=== PATIENT | male | born 1960 | race Caucasian/White ===

== ENCOUNTER 2017-05-21 08:43 | Observation (INO) | payer MEDICAID ==
[~2017-05-21] VITALS: Ht 177.8 cm; Wt 70.3 kg
[~2017-05-21 08:43] MED LIST: ACCUNEB SO1.25 MG/1 INH; ATROVENT HFA14 GM INH; DOXYCYCLINE 10100 MG PO; NOHOMEMEDICATIONS; NORCO 5-325 TA1 EACH PO; PREDNISONE 10 M10 MG PO; PROAIR HFA8.5 GM PO; SINGULAIR 10 MG10 M1 PO; VENTOLIN HFA 1818 GM INH; ZYVOX600 MG PO
[2017-05-21 08:46] VITALS: BP 246/168
[2017-05-21 09:18] LABS: ABSOLUTE BASOPHILS 0.1 thou/uL (0.0-0.2); ABSOLUTE EOSINOPHILS 0.6 thou/uL (0.0-0.7); ABSOLUTE LYMPHOCYTES 1.4 thou/uL (0.8-5.3); ABSOLUTE MONOCYTES 0.6 thou/uL (0.0-1.2); ABSOLUTE NEUTROPHILS 6.6 thou/uL (1.6-8.1); BASOPHILS 0.8 %; EOSINOPHILS 6.3 %; HEMATOCRIT 46.4 % (42.0-52.0); HEMOGLOBIN 16.1 gm/dL (14.0-18.0); LYMPHOCYTES 14.9 %; MCHC 34.8 g/dL (28.0-37.0); MCV 94.6 fL (80.0-100.0); MONOCYTES 6.4 %; MPV 7.8 fl. (7.2-11.1); NUCLEATED RBCS 0 /100WBC; PLATELET COUNT* 134 thou/uL (150-400); POLYS 71.6 %; RDW-CV 13.1 % (10.5-14.5); WBC 9.2 thou/uL (4.0-11.0)
[2017-05-21 09:32] LABS: ANION GAP 5 mmol/L (7-16); BUN 14 mg/dL (7-18); CALCIUM 8.2 mg/dL (8.5-10.1); CHLORIDE 103 mmol/L (98-107); CO2 32 mmol/L (21-32); GLUCOSE 111 mg/dL (70-99); INR 1.1; POTASSIUM 4.1 mmol/L (3.5-5.1); PROTIME 10.3 Seconds (9.20-11.50); SODIUM 140 mmol/L (136-145)
[2017-05-21 09:42] LABS: ALBUMIN 3.7 g/dL (3.4-5.0); ALKALINE PHOSPHATASE 90 U/L (46-116); LIPASE 190 U/L (73-393); NT-PRO BRAIN NAT PEPTIDE 75 pg/mL (<300); SGOT 16 U/L (15-37); SGPT 19 U/L (30-65); TOTAL BILIRUBIN 0.3 mg/dL (<0.1-1.0); TOTAL PROTEIN 6.8 g/dL (6.4-8.2); TROPONIN-I LEVEL <0.06 ng/mL (<0.06)
[2017-05-21] MEDS ORDERED: ZOFRAN4 MG PO (09:50)
[2017-05-21 12:03] LABS: URINE BILIRUBIN NEGATIVE (Negative); URINE BLOOD NEGATIVE (Negative); URINE CLARITY CLEAR; URINE COLOR YELLOW; URINE GLUCOSE-RANDOM NEGATIVE (Negative); URINE KETONES NEGATIVE (Negative); URINE LEUKOCYTES-REFLEX NEGATIVE (Negative); URINE NITRITE-REFLEX NEGATIVE (Negative); URINE PROTEIN NEGATIVE (Negative); URINE SPECIFIC GRAVITY 1.025 (1.005-1.030); URINE UROBILINOGEN 0.2 E.U./dl (0.2-1.0)
[2017-05-21 16:08] VITALS: BP 98/61
[2017-05-21 16:30] VITALS: BP 104/68
--- NOTE | 2017-05-21 16:33 | EKG ---
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1960 Requested By: Baldo Marion Order Number: [id number] MD: Kj Gil Measurements Intervals [place] Rate: 85 P: 53 LA: 137 QRS: 72 QRSD: 92 T: 38 QT: 404 QTc: 481 Interpretive Statements Sinus rhythm Borderline prolonged QT interval Compared to ECG 01/23/2016 22:08:32 No significant changes Electronically Signed On 05-21-2017 16:33:23 COMPRESSION MOLDING MACHINE SETTER by Kj Gil [email or web address] <ELECTRONICALLY SIGNED> By: Kj Gil MD, [facility] 05/21/17 1633 [id number] [id number] Kj Gil MD, [facility] /EPI
--- NOTE | 2017-05-21 16:58 | EKG ---
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 05/21/17 1658 1644 1644 Param Black MD, [facility] /EPI
--- NOTE | 2017-05-21 17:00 | NUR ---
PT. ARRIVED TO ROOM 214. ON 2L NC, VSS, MONITOR PLACED TRACING SR. PT. C/O OF CHEST PAIN 10/22. EKG OBTAINED PER PROTOCOL. BP TO LOW 104/68 TO GIVE NITRO. PT. GIVEN IV FENTYNAL PER JUN. DR. CORTES NOTIFIED OF CONSULT, EKG, AND PT. COMPLAINTS. DR. CORTES UP TO FLOOR AND LOOK AT EKG. ORDER TO KEEP PT. NPO AT MIDNIGHT. FULL ASSESSMENT AND ADMISSION PROCESS COMPLETED. PT ORIENTED TO ROOM. PT. ABLE TO EAT/DRINK APPROPRIATELY. CALL LIGHT IN REACH, WILL CONTINUE WITH PLAN OF CARE.
[2017-05-21 20:00] VITALS: BP 105/45
[2017-05-22 00:04] VITALS: BP 125/78
[2017-05-22 03:57] VITALS: BP 123/75
--- NOTE | 2017-05-22 04:23 | NUR ---
ALERT AND ORIENTED X 4, SLEEPING MOST OF NIGHT, PAIN MEDS EARLY IN EVENING, NO FURTHER COMPLAINTS. WILL CONT. WITH PLAN OF CARE AT THIS TIME. CONT. SR ON MONITOR.
[2017-05-22 05:23] LABS: HEMATOCRIT 44.4 % (42.0-52.0); HEMOGLOBIN 15.5 gm/dL (14.0-18.0); MCH 32.8 pg (26.0-34.0); MCV 93.6 fL (80.0-100.0); RBC 4.74 mil/uL (4.50-6.00); RDW-CV 12.8 % (10.5-14.5); WBC 7.6 thou/uL (4.0-11.0)
[2017-05-22 05:51] LABS: ANION GAP 6 mmol/L (7-16); CALCIUM 8.1 mg/dL (8.5-10.1); CHLORIDE 100 mmol/L (98-107); CHOLESTEROL 154 mg/dL (<200); CO2 30 mmol/L (21-32); CREATININE 0.8 mg/dL (0.6-1.3); GLUCOSE 113 mg/dL (70-99); HDL CHOLESTEROL 79 mg/dL (>40); LDL CHOLESTEROL 64 mg/dL (<100); MAGNESIUM 1.8 mg/dL (1.8-2.4); POTASSIUM 4.2 mmol/L (3.5-5.1); SODIUM 136 mmol/L (136-145); TC:HDL 1.9 Ratio (Not establshd); TRIGLYCERIDE 57 mg/dL (<150); VLDL 11 mg/dL (<40)
[2017-05-22 05:54] LABS: SERUM ASSESSMENT Clear
[2017-05-22 05:59] LABS: BUN 14 mg/dL (7-18)
[2017-05-22 08:00] VITALS: BP 114/79
--- NOTE | 2017-05-22 09:05 | NUR ---
RECEIVED REPORT. ASSUMED CARE OF PT AT 0730. PT A&O X4. VSS. O2 SAT 93% ON ROOM AIR. FILENET P8 DEVELOPER IN PLACE TRACING SR. AM ASSESSMENT AND VITALS COMPLETED CHARTED. PT DENIES PAIN OR DISCOMFORT AT THIS TIME. PT NO LONGER HAVING CHEST PAIN. IV SALINE LOCKED. PT NPO FOR CARDIO CONSULT. PT INFORMED OF PLAN OF CARE. PT COMMUNICATES UNDERSTANDING. MOTHER AT BEDSIDE. LOW FALL RISK PRECAUTIONS IN PLACE. CALL LIGHT IS WITHIN REACH. WILL CONTINUE TO MONITOR.
[2017-05-22] MEDS ORDERED: AMLODIPINE BESYL5 M1 PO (09:49)
[2017-05-22] MEDS ORDERED: PEPCID20 MG PO (09:49)
[2017-05-22 12:05] VITALS: BP 105/64
[2017-05-22 12:48] VITALS: BP 105/64
[2017-05-22 12:59] VITALS: BP 105/64
--- NOTE | 2017-05-22 13:25 | NUR ---
DISCHARGE ORDERS RECEIVED. DISCHARGE COMPLETED CHARTED. DISCHARGE SUMMARY AND EDUCATION GONE OVER WITH THE PT; PT COMMUNICATES UNDERSTANDING. CARE NOTES GIVEN. NEW MEDICATIONS SENT TO PT'S PHARMACY - PT AWARE. ALL BELONGINGS GATHERED AND SENT WITH THE PT. VSS AT TIME OF DC. PT ABLE TO EAT LUNCH PRIOR TO DISCHARGING. PT AWARE OF FOLLOW UP APPOINTMENTS AND NEW MEDICATIONS. PT LEFT UNIT WITH NURSING STAFF. PT LEFT FACILITY WITH MOTHER IN CAR.
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
== END 2017-05-22 13:00 | disposition home or self-care (01) ==
LOC: M.ERS 08:43 → M.TBA-ER 10:24 → M.2W 10:24
PROVIDERS: Emergency Medicine; ADMIT Internal Medicine
DX: R07.9 Chest pain, unspecified (principal); J44.9 Chronic obstructive pulmonary disease, unspecified; I16.1 Hypertensive emergency; R91.1 Solitary pulmonary nodule; F17.210 Nicotine dependence, cigarettes, uncomplicated; F10.21 Alcohol dependence, in remission; Z90.2 Acquired absence of lung [part of]

== ENCOUNTER 2019-10-06 06:23 | Observation (INO) | payer MEDICAID ==
[~2019-10-06] VITALS: Ht 177.8 cm; Wt 75.5 kg
[~2019-10-06 06:23] MED LIST changes: +AMLODIPINE BESYL5 M1 PO; +PEPCID20 MG PO; +ZOFRAN4 MG PO
[2019-10-06 06:25] VITALS: BP 143/67
[2019-10-06 06:39] LABS: BE -1.2 mmol/L (-2 to +3); PCO2 45.5 mmHg (35.0-45.0); PO2 89.6 mmHg (75.0-100.0); pH 7.354 (7.340-7.450)
[2019-10-06 07:07] LABS: ABSOLUTE BASOPHILS 0.1 thou/uL (0.0-0.2); ABSOLUTE EOSINOPHILS 0.4 thou/uL (0.0-0.7); ABSOLUTE LYMPHOCYTES 1.4 thou/uL (0.8-5.3); ABSOLUTE MONOCYTES 0.8 thou/uL (0.0-1.2); ABSOLUTE NEUTROPHILS 4.2 thou/uL (1.6-8.1); BASOPHILS 1.1 %; EOSINOPHILS 6.4 %; HEMATOCRIT 50.1 % (42.0-52.0); HEMOGLOBIN 17.5 gm/dL (14.0-18.0); LYMPHOCYTES 19.9 %; MCH 31.8 pg (26.0-34.0); MCHC 34.9 g/dL (28.0-37.0); MONOCYTES 11.3 %; MPV 7.5 fl. (7.2-11.1); NUCLEATED RBCS 0 /100WBC; PLATELET COUNT* 160 thou/uL (150-400); POLYS 61.3 %; RBC 5.51 mil/uL (4.50-6.00); RDW-CV 14.1 % (10.5-14.5); WBC 6.8 thou/uL (4.0-11.0)
[2019-10-06 07:13] LABS: CALCIUM 8.4 mg/dL (8.5-10.1); CREATININE 1.1 mg/dL (0.6-1.3); POTASSIUM 3.9 mmol/L (3.5-5.1)
[2019-10-06 07:22] LABS: ALBUMIN 3.9 g/dL (3.4-5.0); TOTAL BILIRUBIN 0.9 mg/dL (<0.1-1.0); TOTAL PROTEIN 7.6 g/dL (6.4-8.2)
[2019-10-06 08:00] VITALS: BP 118/76
[2019-10-06 10:00] VITALS: BP 124/73
[2019-10-06 11:30] VITALS: BP 118/76
[2019-10-06 16:40] VITALS: BP 140/82
--- NOTE | 2019-10-06 17:54 | NUR ---
PT RESTING IN BED THROUGHOUT SHIFT,REPOSITIONS SELF WELL. O2@2L WHICH IS PTS HOME USE. PT REPORTS IMPROVED SOA. NSR ON MONITOR
--- NOTE | 2019-10-06 19:18 | EKG ---
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
[2019-10-06 22:57] VITALS: BP 136/80
[2019-10-07] VITALS: BP 130/84
[2019-10-07 04:00] VITALS: BP 148/83
[2019-10-07 04:51] LABS: HEMOGLOBIN 15.8 gm/dL (14.0-18.0); MCH 31.7 pg (26.0-34.0); MCHC 35.1 g/dL (28.0-37.0); MCV 90.3 fL (80.0-100.0); MPV 7.6 fl. (7.2-11.1); NUCLEATED RBCS 0 /100WBC; PLATELET COUNT* 145 thou/uL (150-400); RBC 4.98 mil/uL (4.50-6.00); RDW-CV 14.5 % (10.5-14.5); WBC 13.5 thou/uL (4.0-11.0)
[2019-10-07 05:17] LABS: CALCIUM 8.2 mg/dL (8.5-10.1); CREATININE 0.9 mg/dL (0.6-1.3); POTASSIUM 3.9 mmol/L (3.5-5.1)
[2019-10-07 06:13] LABS: ABSOLUTE LYMPHOCYTES 0.4 thou/uL (0.8-5.3); ABSOLUTE NEUTROPHILS 13.1 thou/uL (1.6-8.1); PLATELET ESTIMATE ADEQUATE
[2019-10-07 07:17] LABS: URINE BILIRUBIN NEGATIVE (Negative); URINE BLOOD NEGATIVE (Negative); URINE CLARITY CLEAR; URINE COLOR YELLOW; URINE GLUCOSE-RANDOM NEGATIVE (Negative); URINE KETONES NEGATIVE (Negative); URINE LEUKOCYTES-REFLEX NEGATIVE (Negative); URINE NITRITE-REFLEX NEGATIVE (Negative); URINE PROTEIN NEGATIVE (Negative); URINE SPECIFIC GRAVITY 1.015 (1.005-1.030); URINE UROBILINOGEN 0.2 E.U./dl (0.2-1.0)
[2019-10-07 07:51] VITALS: BP 122/87
--- NOTE | 2019-10-07 08:28 | NUR ---
PATIENT HAS SLEPT WELL THROUGHOUT MOST OF THE NIGHT. VSS ON 2L 02 VIA NASAL CANNULA. MEDICATIONS GIVEN ORDERED AND CHARTED. PATIENT IS UP AD-SAHIL AND STEADY. IV IN LEFT FOREARM-SL. PATIENT SINUS RHYTHM ON THE OYSTER WORKER. PATIENT INSTRUCTED TO USE CALL LIGHT WHEN NEEDING ASSISTANCE. HOURLY ROUNDS MADE. WILL CONTINUE WITH PLAN OF CARE AND NURSING TO MONITOR.
[2019-10-07 09:04] LABS: AMP/METHAMP Negative (Negative); BARBITURATES Negative (Negative); BENZODIAZEPINES Negative (Negative); COCAINE Negative (Negative); METHADONE Negative (Negative); OPIATES Negative (Negative); PCP Negative (Negative); THC Negative (Negative)
[2019-10-07] MEDS ORDERED: AUGMENTIN 875-1 EACH PO (11:28)
[2019-10-07 11:35] VITALS: BP 122/87
[2019-10-07 12:00] VITALS: BP 138/78
--- NOTE | 2019-10-07 12:26 | NUR ---
ASSUMED CARE OF PT AROUND 0730 THIS AM. REFER TO ASSESSMENT. PT REPORTS IMPROVEMENT OF SOA TODAY. STATES HIS SOA IS RELATED TO ANXIETY. PT INSTRUCTED TO F/U WITH PCP FOR ANXIOLYTICS IF NEEDED. PHYSICIAN GAVE DC HOME ORDERS. DC INSTRUCTIONS GIVEN TO PT AND PT REPORTS UNDERSTANDING. NO OTHER CONCERNS AT THIS TIME. IV DC'D INTACT.
== END 2019-10-07 12:25 | disposition home or self-care (01) ==
LOC: M.ERS 06:23 → M.TBA-ER 08:00 → M.2W 08:00
PROVIDERS: Personal Emergency Response Attendant; ADMIT Internal Medicine; ATTEND Internal Medicine
DX: J96.02 Acute respiratory failure with hypercapnia (principal); J96.01 Acute respiratory failure with hypoxia; J44.1 Chronic obstructive pulmonary disease with (acute) exacerbation; F17.210 Nicotine dependence, cigarettes, uncomplicated; G93.41 Metabolic encephalopathy

== ENCOUNTER → 2020-01-20 | Outpatient (CLI) | payer MEDICAID ==
[~2020-01-20] MED LIST changes: +AUGMENTIN 875-1 EACH PO
== END ==
LOC: M.RAD 10:59
DX: J43.9 Emphysema, unspecified (principal)